=== PATIENT | male | born 1985 | race Hispanic/Latino ===

== ENCOUNTER 2022-07-13 02:06 | Emergency (ER) | payer OTHER ==
[~2022-07-13] VITALS: Ht 175.3 cm; Wt 118.8 kg
[2022-07-13] MEDS ORDERED: FLUORESCEIN SODIUM 1 STRIP STRIP ONE (04:53)
[2022-07-13] MEDS ORDERED: TETRACAINE HCL 0.5% 4 ML OPHTH SOLN ONE (04:53)
[2022-07-13] MEDS ORDERED: ERYTHROMYCIN BASE 0.5% OPHTH OINT 1 GM TUBE OD ONE (05:30)
[2022-07-13] MEDS ORDERED: ERYT1OIN7 OP (05:35)
[2022-07-13] MEDS: HYDROCODONE/ACETAMINOPHEN 5/325 MG TAB PO ONE ×2 (05:41→05:50)
[2022-07-13 05:50] VITALS: BP 115/68
== END 2022-07-13 05:53 | disposition home or self-care (01) ==
LOC: EDH 02:06
DX: S05.01XA Injury of conjunctiva and corneal abrasion without foreign body, right eye, initial encounter (principal); X58.XXXA Exposure to other specified factors, initial encounter; Y93.89 Activity, other specified; Y92.89 Other specified places as the place of occurrence of the external cause; Y99.8 Other external cause status